=== PATIENT | male | born 1990 | race African-American/Black ===

== ENCOUNTER → 2021-04-06 | Emergency (ER) | payer BC ==
[~2021-04-06] VITALS: Ht 180.3 cm; Wt 113.4 kg
== END | disposition home or self-care (01) ==
LOC: ER 17:24
DX: R60.0 Localized edema (principal); S91.332A Puncture wound without foreign body, left foot, initial encounter; T63.691A Toxic effect of contact with other venomous marine animals, accidental (unintentional), initial encounter; M79.672 Pain in left foot; Y93.01 Activity, walking, marching and hiking; Y92.832 Beach as the place of occurrence of the external cause; Y99.8 Other external cause status